=== PATIENT | female | born 1985 | race Caucasian/White ===

== ENCOUNTER → 2018-12-02 13:31 | Outpatient (CLI) | payer BC | END | disposition home or self-care (01) | LOC: D.RT 13:31 | PROVIDERS: ATTEND Internal Medicine Pulmonary Disease | DX: J45.909 Unspecified asthma, uncomplicated (principal) ==

== ENCOUNTER → 2019-03-26 16:03 | Outpatient (CLI) | payer MEDICARE | END | disposition home or self-care (01) | LOC: D.LABREF 16:03 | PROVIDERS: ATTEND Internal Medicine Pulmonary Disease | DX: J45.909 Unspecified asthma, uncomplicated (principal) ==

== ENCOUNTER → 2019-08-31 10:44 | Outpatient (CLI) | payer MEDICARE | END | disposition home or self-care (01) | LOC: D.CT 10:44 | PROVIDERS: ATTEND Internal Medicine Pulmonary Disease | DX: R06.09 Other forms of dyspnea (principal) ==